=== PATIENT | female | born 1970 | race Caucasian/White ===

== ENCOUNTER 2023-10-07 11:59 | Emergency (ER) | payer BC, SELFPAY ==
[2023-10-07 12:15] VITALS: BP 123/78; PULSE 92; RESP 16; TEMP 36.7; O2SAT 98
--- NOTE | 2023-10-07 12:47 | ED.URI ---
HPI - URI/Sore Throat General Chief Complaint: Upper Respiratory Infection Stated Complaint: cough,congestion Time Seen by Provider: 10/07/23 12:05 Source: patient Mode of arrival: ambulatory Limitations: no limitations History of Present Illness HPI Narrative: 53-year-old female presents to [facility] with complaints of productive cough of green colored phlegm, headache, water eyes, sneezing and runny nose for the past 2 days. Patient reports that she had a sore throat 3 days ago which has since resolved. Patient has been taking [id number] Mucinex and Robitussin with minimal relief. Patient is nonsmoker. Patient denies sick contacts. Patient denies nausea, vomiting, diarrhea, shortness of breath, wheezing, fever, body aches or chills. MD elicited complaint: rhinorrhea and nasal congestion Onset (ago): day(s) (2) Severity: mild Able to tolerate fluids by mouth: Yes Exacerbating factors: nothing Relieving factors: nothing Treatments prior to arrival: cold medicine Related Data Home Medications Medication Instructions Recorded Confirmed amitriptyline 50 mg tablet 50 mg PO HS 10/07/23 10/07/23 atenolol 100 mg tablet 100 mg PO DAILY 10/07/23 10/07/23 ezetimibe 10 mg tablet 10 mg PO DAILY 10/07/23 10/07/23 flash glucose sensor (Freeyle 10/07/23 10/07/23 Dmitri 14 Day Sensor kit) metformin 500 mg tablet,extended 1,000 mg PO DAILY 10/07/23 10/07/23 release 24 hr olmesartan 20 mg tablet 20 mg PO DAILY 10/07/23 10/07/23 paroxetine HCl 20 mg tablet 20 mg PO HS 10/07/23 10/07/23 pramipexole 0.125 mg tablet 0.125 mg PO HS 10/07/23 10/07/23 rosuvastatin 10 mg tablet 10 mg PO DAILY 10/07/23 10/07/23 semaglutide 2 mg/dose (8 mg/3 mL) 2 mg subcut WEEKLY 10/07/23 10/07/23 subcutaneous pen injector (Ozempic) Allergies Allergy/AdvReac Type Severity Reaction Status Date / Time niacin AdvReac Mild Hives Verified 10/07/23 12:35 Review of Systems Constitutional: Constitutional: Denies chills, Denies fatigue, Denies fever(s) and Denies weakness ENT: Denies dizziness, Denies epistaxis, Reports nasal congestion and Denies sore throat Cardiovascular: Cardiovascular: Denies chest pain Respiratory: Respiratory: Reports cough, Denies dyspnea and Denies wheezing Gastrointestinal: Gastrointestinal: Denies diarrhea, Denies nausea and Denies vomiting Integumentary/Breasts: Skin/Breast: Denies erythema and Denies rash Neurologic: Denies syncope and Denies headache(s) PMFSH Comments At time of signature, I agree with nursing past medical, surgical, social and family history. There is no relevant family history pertinent to the presenting complaint. Exam Const: General: healthy appearing and no acute distress Nutritional Appearance: well nourished Orientation/consciousness: patient oriented x3 Limitations: no limitations HENMT: Head: normal to inspection Ears: external ears normal and TM's normal bilaterally Face/Nose/Sinus: Normal external nose present Face and sinus: normal facial exam Mouth: Yes Normal oral and palatal mucosa present, Yes lip normal and Yes moist mucous membranes Throat: posterior oropharynx normal and uvula midline Eyes: Conjunctivae: conjunctivae normal Neck: Neck: normal visual inspection Resp: Effort & Inspection: normal respiratory effort and not labored Auscultation: clear to auscultation bilaterally, no crackles, no rales, no rhonchi and no wheezes Cardio: Rate: regular rate Rhythm: regular rhythm Skin: General skin exam: normal color Rashes: no rashes Neuro: General: patient oriented x3 Psych: Affect: normal affect Attitude: cooperative Course Course Level of Care: Express Care Visit Vital Signs Vital signs: Vital Signs Temperature 36.7 C 10/07/23 12:15 Pulse Rate 92 10/07/23 12:15 Respiratory Rate 16 10/07/23 12:15 Blood Pressure 123/78 10/07/23 12:15 Pulse Oximetry 98 10/07/23 12:15 Oxygen Delivery Room Air 10/07/23 12:15 Temperature
== END 2023-10-07 12:54 | disposition home or self-care (01) ==
PROVIDERS: Emergency Provider Nurse Practitioner Family; PCP Family Medicine
DX: B34.9 Viral infection, unspecified (principal); E78.00 Pure hypercholesterolemia, unspecified; I10 Essential (primary) hypertension; K21.9 Gastro-esophageal reflux disease without esophagitis; E11.9 Type 2 diabetes mellitus without complications; Z79.84 Long term (current) use of oral hypoglycemic drugs; F41.9 Anxiety disorder, unspecified
CPT/HCPCS: 87081; 87880; 99213; G0463

== ENCOUNTER 2024-08-10 12:38 | Outpatient (CLI) | payer BC, SELFPAY ==
--- NOTE | ~2024-08-10 | MM_ITS ---
EXAMINATION: MM screening [facility] BI w aleena HISTORY: Screening TECHNIQUE: Craniocaudal and mediolateral oblique 3-D tomosynthesis images were obtained and synthetic 2-D images were generated. CAD analysis was submitted and interpreted. COMPARISON: Comparison to multiple prior studies sequentially, with oldest reviewed study dated 08/28. BREAST PARENCHYMAL COMPOSITION: Not dense: There are scattered areas of fibroglandular density. FINDINGS: Low-density left breast mass in the lower inner quadrant of the left breast anteriorly has decreased in size over time, consistent with a benign mass. There is no evidence of suspicious mass, calcification, or architectural distortion to suggest malignancy in either breast. There has been no suspicious interval change. IMPRESSION: 1. No mammographic evidence of malignancy. 2. Recommend routine screening mammography in one year. BI-RADS CATEGORY 2 - BENIGN FINDINGS Reviewed, dictated and finalized at location B.
== END 2024-08-10 12:39 | disposition home or self-care (01) ==
PROVIDERS: PCP Family Medicine; Visit Provider Obstetrics & Gynecology Gynecology
DX: Z12.31 Encounter for screening mammogram for malignant neoplasm of breast (principal)
CPT/HCPCS: 77063; 77067